=== PATIENT | female | born 1985 | race Caucasian/White ===

== ENCOUNTER 2022-05-01 17:10 | Inpatient (IN) | payer BC ==
[2022-05-01] MEDS ORDERED: DINOPROSTONE 10 MG VAGINAL SUPPOSITORY VG ONE (18:01)
[2022-05-01] MEDS: ELECTROLYTE-148 SOLN 1,000 ML IV SCH (19:00)
[2022-05-01 19:18] VITALS: BMI 35.8
[2022-05-01 21:13] LABS: INR 1.01 (0.83-1.09); PROTHROMBIN TIME (PATIENT) 11.6 SEC (9.7-13.0)
[2022-05-01 21:15] LABS: ACTIVATED PTT 26.5 SECONDS (25.2-36.5)
[2022-05-02] MEDS: ELECTROLYTE-148 SOLN 1,000 ML IV SCH ×4 (02:15→21:00)
[2022-05-02 03:15] LABS: COCAINE, UR NEGATIVE (NEGATIVE); METHADONE, UR NEGATIVE (NEGATIVE); OPIATES, URI NEGATIVE (NEGATIVE); PHENCYCLIDINE,URINE NEGATIVE (NEGATIVE); URINE BENZODIAZEPINES NEGATIVE (NEGATIVE)
[2022-05-02 04:56] LABS: URINE AMPHETAMINES NEGATIVE (NEGATIVE)
[2022-05-02] MEDS ORDERED: OXYTOCIN 30 UNITS in 0.9% NS 30 UNIT/500 ML INFUS.BAG IVPB ONE (08:55)
[2022-05-02 08:59] LABS: URINE BARBITURATES NEGATIVE (NEGATIVE)
[2022-05-02] MEDS ORDERED: OXYTOCIN 30 UNITS in 0.9% NS 30 UNIT/500 ML INFUS.BAG IVPB SCH (09:15)
[2022-05-02] MEDS ORDERED: FENTANYL/BUPIVACAINE/NS/PF - PCEA - 50 ML DISP.SYRIN EP ONE ×2 (19:19→23:34)
[2022-05-02] MEDS ORDERED: NALOXONE HCL 0.4 MG/ML VIAL IVPUSH PRN (20:01)
[2022-05-02] MEDS ORDERED: FENTANYL/BUPIVACAINE/NS/PF - PCEA - 50 ML DISP.SYRIN EP SCH (20:15)
[2022-05-02] MEDS ORDERED: OXYTOCIN 20 UNITS in 0.9% NS 20 UNIT/1,000 ML INFUS.BAG IV ONE (23:48)
[2022-05-03] MEDS ORDERED: BISACODYL 10 MG SUPP.RECT RC PRN (01:03)
[2022-05-03] MEDS ORDERED: BENZOCAINE 20% 57 GM BOTTLE TP PRN (01:03)
[2022-05-03] MEDS ORDERED: ACETAMINOPHEN 325 MG TABLET (FP) PO PRN (01:03)
[2022-05-03] MEDS ORDERED: WITCH HAZEL 50% (TUCKS) 40 PAD/JAR PAD TP PRN (01:03)
[2022-05-03] MEDS ORDERED: oxyCODONE HCL 5 MG TABLET PO PRN (01:03)
[2022-05-03] MEDS ORDERED: METHYLERGONOVINE MALEATE 0.2 MG/1 ML AMP IM PRN (01:03)
[2022-05-03] MEDS ORDERED: BENZOCAINE 28 GM HEMORRHOIDAL OINTMENT TP PRN (01:03)
[2022-05-03] MEDS ORDERED: OXYTOCIN 20 UNITS in 0.9% NS 20 UNIT/1,000 ML INFUS.BAG IV SCH (01:15)
[2022-05-03] MEDS ORDERED: PRENATAL VITAMINS W/ FOLIC ACID TABLET (FP) PO ONE (09:58)
[2022-05-03] MEDS: PRENATAL VITAMINS W/ FOLIC ACID TABLET (FP) PO SCH (10:02)
[2022-05-04 08:08] LABS: BASO % 0.4 % (0-2.0); HEMATOCRIT 32.7 % (32.4-45.2); HEMOGLOBIN 11.1 GM/dL (10.7-15.3); LYMPH % 20.8 % (8-40); MEAN CELL VOLUME 94.3 fl (80-96); MEAN PLT VOLUME 8.4 fl (7.5-11.1); MONO % 7.7 % (3.8-10.2); NEUT % 69.1 % (42.8-82.8); PLATELET COUNT 175 10^3/uL (134-434); RBC 3.46 M/mm3 (3.60-5.2); RDW 13.7 % (11.6-15.6)
[2022-05-04] MEDS: IBUPROFEN 600 MG TABLET (FP) PO PRN ×2 (08:40→14:29)
[2022-05-04] MEDS: PRENATAL VITAMINS W/ FOLIC ACID TABLET (FP) PO SCH (09:14)
[2022-05-04 21:46] VITALS: RESP 16
[2022-05-04] MEDS ORDERED: SENNOSIDES/DOCUSATE COMBO (SENNA PLUS) TABLET (UD) PO PRN (22:00)
[2022-05-05] MEDS: IBUPROFEN 600 MG TABLET (FP) PO PRN (05:24)
[2022-05-05 09:23] VITALS: BP 134/81; PULSE 98; TEMP 97.5
[2022-05-05] MEDS: PRENATAL VITAMINS W/ FOLIC ACID TABLET (FP) PO SCH (09:41)
== END 2022-05-05 13:45 | disposition home or self-care (01) | DRG 807 ==
LOC: JLDR 17:10 → J3W 05-03 14:10
PROVIDERS: ADMIT Obstetrics & Gynecology; ATTEND Obstetrics & Gynecology
PROC: 3E0P7VZ Introduction of Hormone into Female Reproductive, Via Natural or Artificial Opening (ICD-10-PCS; 2022-05-01)
PROC: 3E033VJ Introduction of Other Hormone into Peripheral Vein, Percutaneous Approach (ICD-10-PCS; 2022-05-02)
PROC: 10907ZC Drainage of Amniotic Fluid, Therapeutic from Products of Conception, Via Natural or Artificial Opening (ICD-10-PCS; 2022-05-02)
PROC: 10E0XZZ Delivery of Products of Conception, External Approach (ICD-10-PCS; principal; 2022-05-03)
DX: O70.1 Second degree perineal laceration during delivery (principal); Z37.0 Single live birth; Z3A.39 39 weeks gestation of pregnancy
CPT/HCPCS: 36415; 59409; 80307; 85025; 85610; 85730; 86780; 86850; 86900; 86901